=== PATIENT | male | born 1955 | race Caucasian/White ===

== ENCOUNTER 2020-09-07 10:30 | Emergency (ER) | payer MEDICARE, OTHER ==
[~2020-09-07] VITALS: Ht 182.9 cm; Wt 90.7 kg
--- NOTE | 2020-09-07 10:34 | NUR ---
AAOX3, BIB and son c/o left elbow and left side body pain s/p fell last night, -ko. Patient has hx of stroke. Patient denies syncope or chest pain. Skin is warm and dry. Face asymmetrical from previous stroke per report.
--- NOTE | 2020-09-07 10:38 | NUR ---
Dr Hickey at for eval.
[2020-09-07] MEDS ORDERED: ACETAMINOPHEN ES 500 MG TABLET ONE (10:50)
[2020-09-07] MEDS ORDERED: ACETAMINOPHEN ES 500 MG TABLET PO ONE (11:00)
--- NOTE | 2020-09-07 11:00 | NUR ---
monique at bedside for x-ray.
--- NOTE | 2020-09-07 11:22 | NUR ---
Patient discharged to home in stable condition. Written and verbal after care instructions given. Patient verbalizes understanding of instruction. Pt was assisted to the car in a wheelchair.
[2020-09-07 11:23] VITALS: BP 122/72
== END 2020-09-07 11:25 | disposition home or self-care (01) ==
LOC: ER 10:44
DX: S29.8XXA Other specified injuries of thorax, initial encounter (principal); F32.9 Major depressive disorder, single episode, unspecified; Z86.73 Personal history of transient ischemic attack (TIA), and cerebral infarction without residual deficits; Z98.890 Other specified postprocedural states; W01.0XXA Fall on same level from slipping, tripping and stumbling without subsequent striking against object, initial encounter; Y93.89 Activity, other specified; Y92.89 Other specified places as the place of occurrence of the external cause; Y99.8 Other external cause status
CPT/HCPCS: 71100-TC